=== PATIENT | female | born 1940 | race Caucasian/White ===

== ENCOUNTER 2018-04-22 09:41 | Emergency (ER) | payer OTHER, MEDICAID ==
[~2018-04-22] VITALS: Ht 132.1 cm; Wt 60.5 kg
[~2018-04-22 09:41] MED LIST: LISI2.5T5 PO
[2018-04-22 09:48] VITALS: BP 142/66
--- NOTE | 2018-04-22 09:59 | NUR ---
REPORT GIVEN TO SREEDHAR KOCH
--- NOTE | 2018-04-22 09:59 | NUR ---
PT AMBULATED TO BED 7
--- NOTE | 2018-04-22 10:20 | NUR ---
PT. CAME INTO THE ED DUE TO R UPPER ABD PAIN SINCE LAST NIGHT. PT.STATES " LAST NIGHT I STARTED WITH THIS PAIN IN MY RIGHT UPPER SIDE OF MY STOMACH IT FEELS LIKE BLOATING AND PRESSURE". PT. DENIES ANY N/V/D. PT. DENIES ANY FEVER. 04/18 BLOATING / PRESSURE PAIN IN RUQ UNDER THE RIB PAIN THAT IS NON RADIATING. DENIES ANY MED HX, DENIES ANY ALLERGIES. ER MD NOTIFIED. WILL CONTINUE TO MONITOR. DAUGHTER AT BEDSIDE.
--- NOTE | 2018-04-22 10:29 | NUR ---
LAB AT BEDSIDE.
--- NOTE | 2018-04-22 10:35 | NUR ---
PT TAKEN TO RADIOLOGY
--- NOTE | 2018-04-22 10:46 | NUR ---
PT RETURNED FROM RADIOLOGY
[2018-04-22 10:55] LABS: BASOPHILS % (AUTO) 0.5 % (0.0-2.0); EOSINOPHILS # (AUTO) 0.1 K/uL (0-0.4); EOSINOPHILS % (AUTO) 0.8 % (0.0-4.0); HEMATOCRIT 42.8 % (36-48); HEMOGLOBIN 13.8 g/dL (12.0-16.0); LYMPHOCYTES # (AUTO) 2.4 K/uL (2.5-16.5); LYMPHOCYTES % (AUTO) 27.6 % (20.5-51.1); MEAN CORPUSCULAR HEMOGLOBIN 30 pg (27-31); MEAN CORPUSCULAR HGB CONC 32 g/dL (33-37); MEAN CORPUSCULAR VOLUME 91.6 fL (80-94); MONOCYTES # (AUTO) 0.6 K/uL (0.8-1.0); MONOCYTES % (AUTO) 6.8 % (1.7-9.3); NEUTROPHILS # (AUTO) 5.5 K/uL (1.8-7.7); NEUTROPHILS % (AUTO) 64.3 % (42.2-75.2); PLATELET COUNT (AUTO) 253 K/uL (140-450); RED BLOOD CELL COUNT(AUTO) 4.67 MIL/uL (4.20-5.40); WHITE BLOOD COUNT (AUTO) 8.6 K/uL (4.8-10.8)
[2018-04-22 10:57] LABS: APPEARANCE,URINE CLEAR (CLEAR); BILIRUBIN,URINE NEGATIVE (NEGATIVE); BLOOD, URINE NEGATIVE (NEGATIVE); COLOR,URINE YELLOW (YELLOW); LEUKOCYTE ESTERASE ,URINE TRACE (NEGATIVE); NITRITE, URINE NEGATIVE (NEGATIVE); UGLUCOSE NEGATIVE (NEGATIVE)
[2018-04-22 11:03] LABS: RBC,URINE 0-5 (RARE) /HPF (0-5); WBC,URINE 0-5 (RARE) /HPF (0-5)
[2018-04-22 11:12] LABS: ANION GAP 9.5 (8-16); CARBON DIOXIDE 33.5 mmol/L (21-32); CHLORIDE 101 mmol/L (98-107); CREATININE 1.2 mg/dL (0.6-1.3); GLUCOSE 101 mg/dL (74-106); SODIUM SERUM 139 mmol/L (136-145); UREA NITROGEN, BLOOD 17 mg/dL (7-18)
--- NOTE | 2018-04-22 11:17 | NUR ---
PT. RESTING COMFORTABLY IN BED, RR EVEN AND UNLABORED. DAUGHTER AT BEDSIDE WILL CONTINUE TO MONITOR.
[2018-04-22 11:19] LABS: ALBUMIN 3.8 g/dL (3.4-5.0); ASPARTATE AMINOTRANSFERASE 17 U/L (15-37); LIPASE 149 U/L (73-393); TOTAL BILIRUBIN 0.6 mg/dL (0.0-1.0)
[2018-04-22 12:00] VITALS: BP 136/68
--- NOTE | 2018-04-22 12:00 | NUR ---
Patient discharged with v/s stable. Written and verbal after care instructions given and explained. Patient verbalized understanding. Ambulatory with steady gait. All questions addressed prior to discharge. Advised to follow up with PMD.
== END 2018-04-22 12:00 | disposition home or self-care (01) ==
LOC: MED 09:41
DX: J18.9 Pneumonia, unspecified organism (principal); R10.11 Right upper quadrant pain; R42 Dizziness and giddiness; R05 Cough; Z79.899 Other long term (current) drug therapy; Z90.49 Acquired absence of other specified parts of digestive tract; Z90.89 Acquired absence of other organs; Z88.6 Allergy status to analgesic agent
CPT/HCPCS: 36415; 71046; 80053; 81001; 83690; 85025; 99285